=== PATIENT | female | born 1985 | race Caucasian/White ===

== ENCOUNTER 2017-11-04 19:13 | Emergency (ER) | payer OTHER ==
[2017-11-04 19:16] VITALS: BP 121/74; PULSE 87; RESP 16; TEMP 99.1; O2SAT 98
--- NOTE | 2017-11-04 19:36 | PD ---
HPI Chief Complaint: Related Problem Time Seen by Provider: 19:25 Travel History International Travel<30 days: No Contact w/Intl Traveler<30days: No Traveled to known affect area: No History of Present Illness HPI at 32-year-old female whose last menstrual period was September 15. She presents for evaluation of vaginal spotting. Symptoms started this morning. She reports that it is very light and she reports that she went to a crisis center and did have a positive urine test. She does report slight suprapubic cramping discomfort but she says that it is so mild that she believes that it may be secondary to her pants being on too tight. She denies nausea or vomiting, fevers or chills, flank pain, dysuria. Unknown blood type. She does not yet have an sas etl developer that she follows with. No other complaints. PFSH Past Medical History Medical History: Denies Significant Hx Hx Anticoagulant Therapy: No Cardiovascular Problems: No Chemotherapy: No Cerebrovascular Accident: No Diabetes: No Diminished Hearing: No Gastrointestinal Disorders: Yes (Umbilical hernia ) Respiratory: No ?: : 2 Para: 1 Past Surgical History Surgical History: No Previous Surgery Hysterectomy: No Social History Alcohol Use: Yes (Socially) Tobacco Use: Yes (1/2 PPD) Substance Use: No Allergies-Medications (Allergen,Severity, Reaction): Coded Allergies: No Known Allergies (Unverified Adverse Reaction, Unknown, 11/04/17) Reported Meds & Prescriptions Reported Meds & Active Scripts Active Keflex (Cephalexin) 500 Mg Cap 500 Mg PO Q12H 7 Days Review of Systems Except as stated in HPI: all other systems reviewed are Neg Physical Exam Narrative GENERAL: Well-developed well-nourished female in no acute distress SKIN: Warm and dry. HEAD: Atraumatic. Normocephalic. EYES: Pupils equal and round. No scleral icterus. No injection or drainage. ENT: No nasal bleeding or discharge. Mucous membranes pink and moist. NECK: Trachea midline. No JVD. CARDIOVASCULAR: Regular rate and rhythm. No murmur appreciated. RESPIRATORY: No accessory muscle use. Clear to auscultation. Breath sounds equal bilaterally. GASTROINTESTINAL: Abdomen soft, non-tender, nondistended. Hepatic and splenic margins not palpable. MUSCULOSKELETAL: No obvious deformities. No clubbing. No cyanosis. No edema. NEUROLOGICAL: Awake and alert. No obvious cranial nerve deficits. Motor grossly within normal limits. Normal speech. PSYCHIATRIC: Appropriate mood and affect; insight and judgment normal. Data Data Last Documented VS Vital Signs Date Time Temp Pulse Resp B/P (MAP) Pulse Ox O2 Delivery O2 Flow Rate FiO2 11/04/17 19:16 99.1 87 16 121/74 (90) 98 Room Air Orders Orders Beta Hcg (Quant/Titer) (11/04/17 19:34) Complete Rh (11/04/17 19:34) Us Pelvis (Ques Pr/Ect)W Trans (11/04/17 ) Urinalysis - C+S If Indicated (11/04/17 19:34) Ed Urine Pregnancytest Poc (11/04/17 19:34) Labs Laboratory Tests Test 11/04/17 19:50 11/04/17 19:58 Human Chorionic Gonadotropin, Quant 04900 MIU/ML Urine Color LIGHT-YELLOW Urine Turbidity HAZY Urine pH 5.5 Urine Specific [place] 1.013 Urine Protein NEG mg/dL Urine Glucose (UA) NEG mg/dL Urine Ketones TRACE mg/dL Urine Occult Blood SMALL Urine Nitrite NEG Urine Bilirubin NEG Urine Urobilinogen LESS THAN 2.0 MG/DL Urine Leukocyte Esterase NEG Urine RBC 1 /hpf Urine WBC 2 /hpf Urine Squamous Epithelial Cells 26 /hpf Urine Amorphous Sediment RARE Urine Bacteria RARE /hpf Urine Mucus FEW /lpf Microscopic Urinalysis Comment CULT NOT INDICATED MDM Medical Decision Making Medical Screen Exam Complete: Yes Emergency Medical Condition: Yes Medical Record Reviewed: Yes Differential Diagnosis Threatened , incomplete , completed , ectopic Narrative Course 32-year-old female whose last menstrual was September 15 presents with one-day history of mild vaginal spotting and mild suprapubic cramping discomfort. Plan is for a quantitative beta hCG, urinalysis, Rh type, ultrasound. FINDINGS: There is a single viable intrauterine with heart rate 145 beats per minute. Gestational age is 6 weeks one day by crown-rump length. Small amount of free fluid present. Right ovarian cyst measures up to about 4 cm in diameter. Ultrasound confirms intrauterine with heart rate of 145. Urinalysis reveals a symptomatic bacteriuria. Blood type is O+. The patient will be discharged with Keflex for a symptomatic bacteriuria. Diagnosis Primary Impression: Vaginal bleeding affecting early Additional Impression: Asymptomatic bacteriuria Additional Instructions: Medications prescribed. Ultrasound confirms intrauterine with heart rate of 145, estimated gestational age 6 weeks 1 day. Blood type O positive. Follow-up with an sas etl developer. Return for any emergent medical conditions. Med/Other Pt SpecificInfo: Prescription(s) given Scripts Cephalexin (Keflex) 500 Mg Cap 500 MG PO Q12H for Infection for 7 Days, #14 CAP 0 Refills Prov: Isadora Bustillos DO 11/04/17 Disposition: 01 DISCHARGE HOME Condition: Stable Saleem Parsons Nov 04, 2017 19:36
[2017-11-04 20:21] LABS: AMORPHOUS SEDIMENT, URINE RARE; BACTERIA, URINE RARE /hpf; BILIRUBIN, URINE NEG (NEG); BLOOD, URINE SMALL (NEG); GLUCOSE,URINE NEG (NEG); KETONE, URINE TRACE mg/dL (NEG); MUCUS URINE FEW /lpf (OCC); NITRITE,URINE NEG (NEG); PH, URINE 5.5 (5.0-8.5); SQUAMOUS EPITHELIAL CELL URINE 26 /hpf (0-5); URINE COLOR LIGHT-YELLOW (YELLW/STRAW); URINE LEUKOCYTE ESTERASE NEG (NEG)
--- NOTE | 2017-11-04 21:09 | RADRPT ---
EXAM DATE/TIME: 11/04/2017 20:18 [facility] COMPARISON: No previous studies available for comparison. INDICATIONS : Bleeding. LAB(S): Beta-hC MEDICAL HISTORY : Umbilical hernia. SURGICAL HISTORY : None. ENCOUNTER: Initial ACUITY: 1 day PAIN SCORE: 0/10 LOCATION: Bilateral pelvis MEASUREMENTS: UTERUS: 8.5 x 6.4 x 5.8 cm ENDOMETRIAL STRIPE: 15 mm RIGHT OVARY: 5.2 x 5.2 x 4.3 cm LEFT OVARY: 3.1 x 1.9 x 1.7 cm FREE FLUID: Yes CROWN RUMP LENGTH: 0.5 = 6 WKS 1 DAYS FHR: 145 BPM FINDINGS: There is a single viable intrauterine with heart rate 145 beats per minute. Gestation al age is 6 weeks one day by crown-rump length. Small amount of free fluid present. Right ovarian cys t measures up to about 4 cm in diameter. CONCLUSION: 1. Single viable intrauterine with gestational age 6 weeks one day by crown-rump length. 2. 4 cm right ovarian cyst. Dipesh Rico MD on November 04, 2017 at 21:03 Board Certified Radiologist. This report was verified electronically.
[2017-11-04] MEDS ORDERED: CEPH-460 PO (21:37)
== END 2017-11-04 21:53 | disposition home or self-care (01) ==
LOC: NEPD 19:13
DX: O20.9 Hemorrhage in early pregnancy, unspecified (principal); R82.71 Bacteriuria; Z3A.01 Less than 8 weeks gestation of pregnancy
CPT/HCPCS: 76700; 76817; 81001; 84702; 84703; 86901; 99284

== ENCOUNTER 2017-12-10 16:53 | Emergency (ER) | payer MEDICAID, OTHER ==
[2017-12-10] MEDS ORDERED: SODIUM CHLORIDE 0.9% FLUSH 10 ML FLUSH IVF (17:30)
[2017-12-10 18:28] LABS: AUTOMATED NEUTROPHIL # 6.5 TH/MM3 (1.8-7.7); BASOPHIL # 0.1 TH/MM3 (0-0.2); BASOPHIL % 0.8 % (0.0-2.0); EOSINOPHIL # 0.1 TH/MM3 (0-0.4); EOSINOPHIL % 0.8 % (0.0-4.0); HEMATOCRIT 41.6 % (35.0-46.0); HEMO FLAGS DIFF FINAL; HEMOGLOBIN 14.6 GM/DL (11.6-15.3); LYMPH % 30.6 % (9.0-44.0); LYMPHOCYTE # 3.3 TH/MM3 (1.0-4.8); MEAN CELL VOLUME 88.8 FL (80.0-100.0); MEAN PLATELET VOLUME 9.1 FL (7.0-11.0); MONO % 6.5 % (0.0-8.0); MONOCYTE # 0.7 TH/MM3 (0-0.9); NEUT % 61.3 % (16.0-70.0); PLATELET COUNT 254 TH/MM3 (150-450); RED BLOOD COUNT 4.69 MIL/MM3 (4.00-5.30); RED CELL DISTRIBUTION WIDTH 12.3 % (11.6-17.2); WHITE BLOOD COUNT 10.6 TH/MM3 (4.0-11.0)
[2017-12-10 18:50] LABS: AMORPHOUS SEDIMENT, URINE RARE; BILIRUBIN, URINE NEG (NEG); BLOOD, URINE LARGE (NEG); COMMENT (UR) CULT NOT INDICATED; CULTURE IF INDICATED CULT NOT INDICATED; GLUCOSE,URINE NEG (NEG); KETONE, URINE NEG (NEG); MUCUS URINE FEW /lpf (OCC); NITRITE,URINE NEG (NEG); PH, URINE 7.5 (5.0-8.5); SQUAMOUS EPITHELIAL CELL URINE 3 /hpf (0-5); URINE COLOR YELLOW (YELLW/STRAW); URINE LEUKOCYTE ESTERASE NEG (NEG)
[2017-12-10 18:53] LABS: ALBUMIN 4.2 GM/DL (3.4-5.0); ANION GAP 9 MEQ/L (5-15); AST (GOT) 17 U/L (15-37); BICARBONATE 23.1 MEQ/L (21.0-32.0); BLOOD UREA NITROGEN 9 MG/DL (7-18); CALCIUM 9.3 MG/DL (8.5-10.1); CHLORIDE 106 MEQ/L (98-107); CREATININE 0.59 MG/DL (0.50-1.00); GLOMERULAR FILTRATION RATE 118 ML/MIN (>89); GLUCOSE,RANDOM 77 MG/DL (74-106); POTASSIUM 3.7 MEQ/L (3.5-5.1); SODIUM (NA) 138 MEQ/L (136-145)
[2017-12-10 19:14] LABS: ALKALINE PHOSPHATASE 77 U/L (45-117); ALT (GPT) 20 U/L (10-53); BETA HCG QUANT 97744 MIU/ML (0-5); TOTAL BILIRUBIN ADULT 0.4 MG/DL (0.2-1.0); TOTAL PROTEIN 8.3 GM/DL (6.4-8.2)
== END 2017-12-10 20:23 | disposition home or self-care (01) ==
LOC: NEPD 16:53
DX: O20.0 Threatened abortion (principal); Z3A.11 11 weeks gestation of pregnancy; F17.200 Nicotine dependence, unspecified, uncomplicated
CPT/HCPCS: 76700; 80053; 81001; 84702; 85025; 86901; 99284

== ENCOUNTER 2018-03-17 07:38 | Emergency (ER) | payer MEDICAID ==
[~2018-03-17] VITALS: Ht 177.8 cm; Wt 80.0 kg
[~2018-03-17 07:38] MED LIST: WOMETAB5
[2018-03-17 07:42] VITALS: BP 120/58; PULSE 67; RESP 18; TEMP 97.9; O2SAT 100
[2018-03-17] MEDS ORDERED: PREN29TA PO (07:55)
--- NOTE | 2018-03-17 08:14 | PD ---
HPI Chief Complaint: Musculoskeletal Complaint Time Seen by Provider: 08:08 Travel History International Travel<30 days: No Contact w/Intl Traveler<30days: No Traveled to known affect area: No History of Present Illness HPI This is a 33-year-old female who is 6 months , presents today with complaints of tearing sensation under her right breast. Patient states that it woke her from sleep 2-3 days ago. She reports that it feels like it is burning and tearing under her right breast. There is no reported rash. There is no reported known injury. She does report that her breasts have become more full with the . She states she has not had this with previous pregnancies. There is no abdominal pain. There is no vaginal bleeding. There are no other complaints at time of examination. PFSH Past Medical History Hx Anticoagulant Therapy: No Cardiovascular Problems: No Chemotherapy: No Cerebrovascular Accident: No Diabetes: No Diminished Hearing: No Gastrointestinal Disorders: Yes (Umbilical hernia ) Respiratory: No ?: : 3 Para: 2 Past Surgical History Other Surgery: Yes (toes) Social History Alcohol Use: No (Socially) Tobacco Use: Yes (1/2 PPD) Substance Use: No Allergies-Medications (Allergen,Severity, Reaction): Coded Allergies: No Known Allergies (Verified Adverse Reaction, Unknown, 12/16/17) Reported Meds & Prescriptions Reported Meds & Active Scripts Active Reported Plus Iron 29-1 mg ( Vit-Iron Carbonyl) 29 Mg Iron-1 Mg Tab 1 Tab PO DAILY Review of Systems Except as stated in HPI: all other systems reviewed are Neg General / Constitutional: No: Fever, Chills Gastrointestinal: No: Nausea, Vomiting, Abdominal Pain Skin: Positive Other (Tearing and burning sensation under right breast), No Rash, No Lumps, No Lesions Physical Exam Narrative GENERAL: Well-nourished, well-developed patient. SKIN: Focused skin assessment warm/dry. On examination patient's right breast with actually the nurse present, there is no evidence of redness or erythema. There is no palpable fluctuance. There is no rash noted. HEAD: Normocephalic. NEUROLOGICAL: Awake and alert. Cranial nerves II through XII intact. Motor and sensory grossly within normal limits. Five out of 5 muscle strength in all muscle groups. Normal speech. Data Data Last Documented VS Vital Signs Date Time Temp Pulse Resp B/P (MAP) Pulse Ox O2 Delivery O2 Flow Rate FiO2 03/17/18 07:42 97.9 67 18 120/58 (78) 100 MDM Medical Decision Making Medical Screen Exam Complete: Yes Emergency Medical Condition: Yes Differential Diagnosis Pulled muscle versus infection versus zoster. Narrative Course 33-year-old female 6 months , presents today with complaints of pain under her right breast. Patient feels as though it is a tearing sensation just on the inferior portion of her breast. Patient denies any injury. There is no evidence of infection or rash. There is no palpable masses. Given patient's , recommend patient is that she take Tylenol every 6 hours as needed. She is also instructed to use moist heat in the area for 2-3 days. I have informed her that this could possibly be early zoster and if she develops a rash , she should return or follow up with her OB doctor. Diagnosis Primary Impression: Right inferior breast discomfort Additional Impression: 6 months Additional Instructions: Tylenol every 6-8 hours. Moist heat 3-4 times daily. If rash develops return or follow-up with your OB physician. Disposition: 01 DISCHARGE HOME Condition: Stable Pawel Ch MD Mar 17, 2018 08:14
== END 2018-03-17 08:45 | disposition home or self-care (01) ==
LOC: NEPE 07:38
DX: O26.892 Other specified pregnancy related conditions, second trimester (principal); N64.4 Mastodynia; O99.332 Smoking (tobacco) complicating pregnancy, second trimester; F17.200 Nicotine dependence, unspecified, uncomplicated
CPT/HCPCS: 99282

== ENCOUNTER 2018-05-16 17:24 | Emergency (ER) | payer MEDICAID ==
[~2018-05-16 17:24] MED LIST changes: +PREN29TA PO; -WOMETAB5
--- NOTE | 2018-05-16 18:09 | PD ---
HPI Chief Complaint Lower abdominal pain sharp Date Seen: May 16, 2018 Time Seen: 18:02 Travel History International Travel<30 Days: No Contact w/Intl Traveler<30Days: No Known Affected Area: No History of Present Illness HPI Patient is 33-year-old white female A1 at 35 weeks tomorrow [facility] and presents complaining of sharp lower abdominal pain for several days but today much worse. States that is sharp it feels like the baby is putting pressure in the pelvis and that the baby's head wants to just "fall out", she denies bleeding or leakage of fluid. NST is reactive, she is not [place] Weeks Gestation: 35 Para: 1 : 3 History Obstetric History Obstetric History 1 vaginal delivery 1 early loss Social History Alcohol Use: No Tobacco Use: No Substance Abuse: No Allergies-Medications (Allergen,Severity, Reaction): Coded Allergies: No Known Allergies (Verified Adverse Reaction, Unknown, 12/16/17) Home Meds Reported Medications Vit-Iron Carbonyl ( Plus Iron 29-1 mg) 29 Mg Iron-1 Mg Tab, 1 TAB PO DAILY for Nutritional Supplement, #30 TAB 0 Refills 03/17/18 Review of Systems General / Constitutional: No: Fever, Weight Gain, Chills, Other Eyes: No: Diploplia, Blurred Vision, Visual changes, Pain, Photophobia HENT: No: Headaches, Vertigo, Lightheadedness Cardiovascular: No: Irregular Rhythm, Chest Pain or Discomfort, Palpitations, Tachycardia, Syncope, Varicosities, Edema, Cyanosis Respiratory: No: Cough, Short of Breath, Other Gastrointestinal: Abdominal Pain, No: Nausea, Vomiting, Diarrhea Genitourinary: No: Decreased Urinary Output, Oliguria Musculoskeletal: No: Limited ROM, Weakness, Cramping, Edema, Pain Skin: No Rash, No Itching, No Dryness, No Lumps, No Change in Pigmentation, No Change in Nails, No Alopecia, No Lesions Neurologic: No: Weakness, Dizziness, Syncope, Focal Abnormalities, Coordination Problem, Headache, Slurred Speech, Seizures Psychiatric: No: Depression, Suicidal Ideations, Homicidal Ideation Endocrine: No: Heat Intolerance, Cold Intolerance, Polydipsia, Polyuria, Other Physical Exam Narrative GENERAL: Well-nourished, well-developed patient. SKIN: Warm and dry. HEAD: Normocephalic and atraumatic. EYES: No scleral icterus. No injection or drainage. ENT: No nasal drainage noted. Mucous membranes pink. Airway patent. NECK: Supple, trachea midline. No JVD. CARDIOVASCULAR: Regular rate and rhythm without murmurs, gallops, or rubs. RESPIRATORY: Breath sounds equal bilaterally. No accessory muscle use. BREASTS: Bilateral exam showed no masses , no retractions, no nipple discharge. ABDOMEN/GI: Abdomen soft, non-tender, bowel sounds present, no rebound, no guarding Gravid to [-35] weeks size Fundal Height: [-35] GENITOURINARY: External Genitalia: intact and normal in appearance BUS glands: [-] Cervix: [-post] Dilatation: [0-] Effacement: [0-] Station: [-3] there is no excessive pressure noted in the vagina on digital exam Presentation: [vtx-] Membranes: [intact ] Uterine Contractions: [-none] FHT's: Category: [1-] Baseline: [133-] Reactive: R[-] Variability: [mod-] Decels: [-0] EXTREMITIES: No cyanosis or edema. BACK: Nontender without obvious deformity. No CVA tenderness. NEUROLOGICAL: Awake and alert. Motor and sensory grossly within normal limits. Five out of 5 muscle strength in all muscle groups. Normal speech. Data Data Orders Orders Meperidine Inj (Demerol Inj) (05/16/18 18:15) Promethazine Inj (Phenergan Inj) (05/16/18 18:15) Labs Urine dip on OB ED is negative MDM Interpretation(s) Patient is 33-year-old white female at 35 weeks tomorrow [facility] and presents complaining of lower abdominal pain as a sharp and has been worsening through the day been going on for several days. She denies bleeding or rupture membranes. NST is reactive and she is not [place], cervix is closed thick and very posterior. Plan Plan for patient to get a IM injection for pain Demerol/Phenergan, and then bedrest at home for 2 days and a work note to be given. She is to take Tylenol liberally as needed, p.o. hydrate, heating pad or hot bath for symptom relief and follow-up with her clinic Diagnosis Diagnosis: Primary Impression: Lower abdominal pain, unspecified Additional Impression: 35 weeks gestation of Disposition: 01 DISCHARGE HOME Condition: Stable Departure Forms: Work Release Enter return to work date: May 19, 2018 Special Instructions: This patient's having lower abdominal pain related to and overactivity. She needs bedrest for 48 hours Hossein Vazquez II, MD May 16, 2018 18:09
[2018-05-16] MEDS ORDERED: PROMETHAZINE INJ 25 MG/ML VIAL IM ONE (18:15)
[2018-05-16] MEDS ORDERED: MEPERIDINE HCL 50 MG/ML VIAL IM ONE (18:15)
== END 2018-05-16 18:42 | disposition home or self-care (01) ==
LOC: HOBED 17:24
DX: O26.893 Other specified pregnancy related conditions, third trimester (principal); R10.30 Lower abdominal pain, unspecified; Z3A.35 35 weeks gestation of pregnancy
CPT/HCPCS: 96372; 99284; J2175; J2550

== ENCOUNTER 2018-06-29 02:36 | Inpatient (IN) ==
[2018-06-29] MEDS ORDERED: Sod Chloride 0.9% Inj 1,000 ML IV.CONT PRN (03:45)
[2018-06-29] MEDS ORDERED: Sodium Chlor 0.9% Inj 500 ML IV.SIG PRN (03:45)
[2018-06-29] MEDS ORDERED: fentaNYL Citrate Inj 100 MCG/2 ML Ampul IV.PUSH PRN ×2 (03:45)
[2018-06-29] MEDS ORDERED: Citric Acid/Sodium Citrate Liq 30 ML UDC PO SCH (03:45)
[2018-06-29] MEDS ORDERED: Naloxone Inj 0.4 MG/ML Vial IV.PUSH PRN ×2 (03:45→09:55)
[2018-06-29] MEDS ORDERED: Oxytocin 30 Units/500ml Premix 30 UNITS/500 ML BAG IV.SIG ONE (03:45)
[2018-06-29 03:48] LABS: Baso % (Auto) 0.3 % (0.0-2.0); Eos # (Auto) 0.1 th/mm3 (0.0-0.4); Eos % (Auto) 0.7 % (0.0-4.0); Hemoglobin 12.9 gm/dL (11.6-15.3); Lymph # (Auto) 2.7 th/mm3 (1.0-4.8); Lymph % (Auto) 22.3 % (9.0-44.0); Mean Corpuscular HGB Conc 33.9 % (32.0-36.0); Mean Corpuscular Hemoglobin 29.6 pg (27.0-34.0); Mean Corpuscular Volume 87.4 fL (80.0-100.0); Mean Platelet Volume 10.4 fL (7.0-11.0); Mono # (Auto) 0.9 th/mm3 (0.0-0.9); Neut # (Auto) 8.5 th/mm3 (1.8-7.7); Neut % (Auto) 69.7 % (16.0-70.0); Platelet Count 228 th/mm3 (150-450); Red Blood Count 4.34 mil/mm3 (4.00-5.30); Red Cell Distribution Width 12.9 % (11.6-17.2); White Blood Count 12.1 th/mm3 (4.0-11.0)
[2018-06-29 03:53] LABS: Bacteria,Urine Rare /hpf; Bilirubin,Urine Negative (Negative); Clarity,Urine Cloudy (Clear); Color,Urine Yellow (Yellw/Straw); Glucose,Urine (UA) Negative (Negative); Leukocyte Esterase,Urine Small (Negative); Mucus,Urine Few /lpf (Occasional); Nitrite,Urine Negative (Negative); Specific Gravity,Urine 1.023 (1.002-1.035); Squamous Epithelial Cell,Urine 16 /hpf (0-5)
[2018-06-29 03:57] LABS: Amphetamine Urine With Conf Neg (Neg); Benzodiazepine Urine With Conf Neg (Neg)
--- NOTE | 2018-06-29 04:52 | P.HPOB ---
History of Present Illness Primary Care Physician: Jossy Mckeon MD Chief Complaint: early labor at 41 weeks EGA History of Present Illness: 33 yo at 41 weeks EGA was scheduled for induction this am and came in 3 am in labor. No leaking, bleeding. GFM. No symptoms pre eclampsia. PNC with [facility]. Weeks Gestation:: 41 Para: 1 : 3 - Inpatient Certification I certify that the inpatient services were ordered in accordance with Medicare regulations governing the order. This includes certification that hospital inpatient services are reasonable and necessary and in the case of services not specified as inpatient-only under 42 CFR 419.22(n), that they are appropriately provided as inpatient services in accordance to with the 2-midnight benchmark under 43 CFR 412.3(e) Estimated Total Length of Stay (Days): 3 Plans for Post Hospital Care: Home Review of Systems All other systems reviewed negative except as stated in HPI PMFSH - Tobacco History Cigarettes Per Day: 10 - Substance Use History Substance History: No History of Abuse - Travel History History of Recent Travel: No Medications and Allergies Active Medications: Active Medications Citric Acid/Sodium Citrate (Sodium Citrate/Citric Acid Liq) 30 ml PO WASTE MANAGEMENT RECYCLING TECHNICIAN SHERON Stop: 07/03/18 03:44 Fentanyl Citrate (Fentanyl Inj) 50 mcg IV.PUSH Q1H PRN PRN Reason: Pain Scale 3 - 5 Fentanyl Citrate (Fentanyl Inj) 100 mcg IV.PUSH Q1H PRN PRN Reason: PAIN SCALE 6 TO 10 Lactated Ringer's (Lr 1000 Ml Inj) 1,000 mls @ 125 mls/hr IV.CONT .Q8H SHERON Lactated Ringer's (Lr 1000 Ml Inj) 1,000 mls @ 3,000 mls/hr IV.SIG UNSCH PRN PRN Reason: compromise or epidural Sodium Chloride (Ns Inj) 500 mls @ 1,000 mls/hr IV.SIG UNSCH PRN PRN Reason: SEE LABEL COMMENTS Sodium Chloride (Ns Inj) 1,000 mls @ 100 mls/hr IV.CONT .Q10H PRN PRN Reason: SEE LABEL COMMENTS Lidocaine HCl (Xylocaine 1% Inj) 0.1 ml I-DERMAL PRN PRN PRN Reason: For IV start Stop: 07/02/18 03:44 Lidocaine HCl (Xylocaine 1% Inj) 10 ml INFILTRATN PRN PRN PRN Reason: For episiotomy repair Stop: 07/01/18 03:44 Mineral Oil (Muri-Lube Oil) 10 ml TOPICAL PRN PRN PRN Reason: PRN perineal massage Naloxone HCl (Narcan Inj) 0.1 mg IV.PUSH Q2M PRN PRN Reason: for opiate reversal Ondansetron HCl (Zofran Inj) 4 mg IV.PUSH Q6H PRN PRN Reason: NAUSEA OR VOMITING Allergies Allergy/AdvReac Type Severity Reaction Status Date / Time No Known Allergies AdvReac Unknown Uncoded 12/16/17 13:23 Home Medications Medication Instructions Recorded Confirmed Type 95-iron [id number] 1 each PO DAILY 06/19/18 06/19/18 History [ + DHA] Exam Vital signs: Vital Signs 06/29/18 03:26 06/29/18 03:27 06/29/18 03:30 Temperature 97.7 F Pulse Rate 61 Respiratory Rate 20 Blood Pressure 123/82 - Constitutional mild distress - Additional findings Additional findings: Term fundus vertex EFW 8 pounds pelvis proven /-1 per RN Results - Labs CBC & Chem 7: 06/29/18 03:14 Labs: Laboratory Results - last 24 hr 06/29/18 06/29/18 06/29/18 03:14 03:14 03:14 WBC 12.1 H RBC 4.34 Hgb 12.9 Hct 38.0 MCV 87.4 MCH 29.6 MCHC 33.9 RDW 12.9 Plt Count 228 MPV 10.4 Neut % (Auto) 69.7 Lymph % (Auto) 22.3 [place] % (Auto) 7.0 Eos % (Auto) 0.7 Baso % (Auto) 0.3 Neut # (Auto) 8.5 H Lymph # (Auto) 2.7 [place] # (Auto) 0.9 Eos # (Auto) 0.1 Baso # (Auto) 0.0 WBC Differential . Differential Comment Auto diff final Urine Color Urine Clarity Urine pH Ur Specific [place] Urine Protein Urine Glucose (UA) Urine Ketones Urine Occult Blood Urine Nitrate Urine Bilirubin Urine Urobilinogen Ur Leukocyte Esterase Urine RBC Urine WBC Ur Squamous Epith Cells Urine Bacteria Urine Mucus Micro UA Comment Urine Culture Comments Urine Opiates Screen Neg Ur Barbiturates Screen Neg Ur Amphetamine Screen Neg U Benzodiazepines Scrn Neg Urine Cocaine Screen Neg U Cannabinoids Screen Neg Blood Type O Positive Blood Type Recheck Not needed 06/29/18 03:14 WBC RBC Hgb Hct MCV MCH MCHC RDW Plt Count MPV Neut % (Auto) Lymph % (Auto) [place] % (Auto) Eos % (Auto) Baso % (Auto) Neut # (Auto) Lymph # (Auto) [place] # (Auto) Eos # (Auto) Baso # (Auto) WBC Differential Differential Comment Urine Color Yellow Urine Clarity Cloudy H Urine pH 6.0 Ur Specific [place] 1.023 Urine Protein 30 H Urine Glucose (UA) Negative Urine Ketones Negative Urine Occult Blood Moderate H Urine Nitrate Negative Urine Bilirubin Negative Urine Urobilinogen 2.0 H Ur Leukocyte Esterase Small H Urine RBC 3 Urine WBC 10 H Ur Squamous Epith Cells 16 Urine Bacteria Rare H Urine Mucus Few H Micro UA Comment Culture not ind Urine Culture Comments Culture not ind Urine Opiates Screen Ur Barbiturates Screen Ur Amphetamine Screen U Benzodiazepines Scrn Urine Cocaine Screen U Cannabinoids Screen Blood Type Blood Type Recheck Caprini VTE Risk Assessment Caprini VTE Risk Assessment: No/Low Risk (score <= 1) Caprini Risk Assessment Model: Point Value = 1 Point Value = 2 Point Value = 3 Point Value = 5 Age 41-60 Minor surgery BMI > 25 kg/m2 Swollen legs Varicose veins or History of unexplained or recurrent spontaneous Oral contraceptives or hormone replacement Sepsis (< 1 month) Serious lung disease, including pneumonia (< 1 month) Abnormal pulmonary function Acute myocardial infarction Congestive heart failure (< 1 month) History of inflammatory bowel disease Medical patient at bed rest Age 61-74 Arthroscopic surgery Major open surgery (> 45 min) Laparoscopic surgery (> 45 min) Malignancy Confined to bed (> 72 hours) Immobilizing plaster cast Central venous access Age >= 75 History of VTE Family history of VTE Factor V Leiden Prothrombin [id number] Lupus anticoagulant Anticardiolipin antibodies Elevated serum homocysteine Heparin-induced thrombocytopenia Other congenital or acquired thrombophilia Stroke (< 1 month) Elective arthroplasty Hip, pelvis, or leg fracture Acute spinal cord injury (< 1 month) Prophylaxis Regimen: Total Risk Factor Score Risk Level Prophylaxis Regimen 0-1 Low Early ambulation 2 Moderate Order ONE of the following: *Sequential Compression Device (SCD) *Heparin 5000 units SQ BID 3-4 Higher Order ONE of the following medications: *Heparin 5000 units SQ TID *Enoxaparin/Lovenox 40 mg SQ daily (WT < 150 kg, CrCl > 30 mL/min) *Enoxaparin/Lovenox 30 mg SQ daily (WT < 150 kg, CrCl > 10-29 mL/min) *Enoxaparin/Lovenox 30 mg SQ BID (WT < 150 kg, CrCl > 30 mL/min) AND/OR *Sequential Compression Device (SCD) 5 or more Highest Order ONE of the following medications: *Heparin 5000 units SQ TID (Preferred with Epidurals) *Enoxaparin/Lovenox 40 mg SQ daily (WT < 150 kg, CrCl > 30 mL/min) *Enoxaparin/Lovenox 30 mg SQ daily (WT < 150 kg, CrCl > 10-29 mL/min) *Enoxaparin/Lovenox 30 mg SQ BID (WT < 150 kg, CrCl > 30 mL/min) AND *Sequential Compression Device (SCD) Assessment and Plan - Diagnosis (1) 41 weeks gestation of Code(s): Z3A.41 - 41 weeks gestation of Status: Acute (2) Uterine contractions Status: Acute - Plan admit augment and epidural as needed anticipate
[2018-06-29] MEDS ORDERED: fentaNYL 2MCG-Bupiv 0.125% Epi 150 ML EPIDURAL ONE (05:39)
[2018-06-29] MEDS ORDERED: fentaNYL 2MCG-Bupiv 0.125% Epi 150 ML EPIDURAL PRN (06:10)
[2018-06-29] MEDS ORDERED: fentaNYL Citrate Inj 100 MCG/2 ML Ampul EPIDURAL ONE (06:10)
[2018-06-29] MEDS ORDERED: Benzocaine 20% Top Spray 60 ML Can TOPICAL PRN (09:55)
[2018-06-29] MEDS ORDERED: Zolpidem Tartrate 5 MG Tablet PO PRN (09:55)
[2018-06-29] MEDS ORDERED: Witch Hazel 50%/Glyderin 12.5% 40 Pad Jar RECTAL PRN (09:55)
[2018-06-29] MEDS ORDERED: Bisacodyl 10 MG Supp RECTAL PRN (09:55)
[2018-06-29] MEDS ORDERED: Oxytocin 30 Units/500ml Premix 30 UNITS/500 ML BAG IV.CONT SCH (10:00)
--- NOTE | 2018-06-29 10:02 | P.OBDELI ---
Weeks Gestation: 41 Patient Started Active Labor: Yes Anesthesia: Epidural Episiotomy: none Vaginal Delivery: Normal Presentation: Occiput anterior Nuchal Cord: None Delayed Cord Clamping (45 sec): Yes Placenta: Spontaneous delivery Laceration: None Estimated blood loss (mL): 100 : Male Infant Male A Delivery Date: 06/29/18 Weight: 3585 kg score (1 min): 8 score (5 min): 8 Additional Information: Head delivered by maternal effort. No nuchal cord. Anterior shoulder delivered without complication. Placenta delivered without complication. No lacerations.
[2018-06-29] MEDS: Acetaminophen 325 MG Tablet PO PRN ×2 (10:34→14:52)
[2018-06-29] MEDS ORDERED: Diphtheria/Tetanus/Pertussis Vaccine Inj 0.5 ML Syringe IM ONE (16:00)
[2018-06-29] MEDS ORDERED: Measles/Mumps/Rubella Vaccine Inj 0.5 ML Vial SQ ONE (16:00)
[2018-06-29] MEDS ORDERED: Senna/Docusate Sodium 8.6/50 MG Tablet PO SCH (21:00)
--- NOTE | 2018-06-30 08:58 | P.PNOB ---
Subjective Post day: 1 Interval history: Patient is a 33-year-old delivered at 40 weeks and 0 days. Patient is day 1 after . Patient's pain is well-controlled. Patient reports eating and drinking without any nausea or vomiting. Patient reports minimal bleeding. Patient has passed gas but no bowel movements. Patient is walking without lower extremity pain or shortness of breath. Patient reports desire for contraception and formula feeding. Objective Vital Signs/I&O: Vital Signs 06/29/18 09:10 06/29/18 10:00 06/29/18 10:05 Temperature 97.5 F L Pulse Rate 61 66 Respiratory Rate 16 Blood Pressure 106/63 135/107 H 06/29/18 10:15 06/29/18 10:20 06/29/18 10:30 Temperature Pulse Rate 70 66 Respiratory Rate 18 Blood Pressure 130/85 131/87 06/29/18 10:45 06/29/18 11:00 06/29/18 11:40 Temperature 97.9 F Pulse Rate 70 70 66 Respiratory Rate 16 Blood Pressure 138/96 H 129/88 131/86 06/29/18 22:30 Temperature 98.0 F Pulse Rate 72 Respiratory Rate 18 Blood Pressure 130/80 Result Diagrams: 06/29/18 03:14 Objective Remarks: GENERAL: Well-nourished, well-developed patient. CARDIOVASCULAR: Regular rate and rhythm without murmurs, gallops, or rubs. RESPIRATORY: Breath sounds equal bilaterally. No accessory muscle use. ABDOMEN/GI: Abdomen soft, non-tender. Fundus: Firm, non-tender at umbilicus. GENITOURINARY: Light to moderate bleeding. EXTREMITIES: No cyanosis or edema, non-tender, without signs of DVT. Medications and IVs: Active Medications Al Hydroxide/Mg Hydroxide (Milk Of Magnesia Liq) 30 ml PO Q12H PRN PRN Reason: Mild Constipation Benzocaine (Americaine 20% Top [place]) 1 spray TOPICAL Q4H PRN PRN Reason: For Perineum Discomfort Bisacodyl (Dulcolax Supp) 10 mg RECTAL DAILY PRN PRN Reason: SEVERE CONSITIPATION Fentanyl/Bupivacaine/Sodium Chlor (Fentanyl 2 Mcg-Bupiv 0.125% Epi) 150 mls @ 12 mls/hr EPIDURAL PRN PRN PRN Reason: for Labor Pain Ibuprofen (Motrin) 800 mg PO Q8H PRN PRN Reason: For cramping Last Admin: 06/30/18 06:41 Dose: 800 mg Lactulose (Lactulose Liq) 30 ml PO DAILY PRN PRN Reason: SEVERE CONSITIPATION Naloxone HCl (Narcan Inj) 0.1 mg IV.PUSH Q2M PRN PRN Reason: for opiate reversal Nicotine (Habitrol 7 Mg Patch.24 Hr) 1 patch T-DERMAL DAILY SHERON Last Admin: 06/29/18 14:54 Dose: 1 patch Ondansetron HCl (Zofran Odt) 4 mg PO Q6H PRN PRN Reason: NAUSEA OR VOMITING Oxycodone/Acetaminophen (Percocet 5/325 Mg) 1 tab PO Q4H PRN PRN Reason: PAIN 1-10 Last Admin: 06/30/18 06:42 Dose: 1 tab Patch Removal (Remove Old Patch) 1 each T-DERMAL HS SHERON Senna/Docusate Sodium (Veronica-Colace) 1 tab PO BID SHERON Sennosides (Senokot) 17.2 mg PO Q12H PRN PRN Reason: Moderate Constipation Sodium Chloride (Ns Flush) 2 ml IV.FLUSH BID SHERON Sodium Chloride (Ns Flush) 2 ml IV.FLUSH UNSCH PRN PRN Reason: FLUSH AFTER USING IV ACCESS Witch Regina/Glycerin (Tucks Pads) 1 applicatio RECTAL QID PRN PRN Reason: HEMORRHOIDS Zolpidem Tartrate (Ambien) 5 mg PO HS PRN PRN Reason: SLEEP Assessment and Plan - Diagnosis (1) Vaginal delivery Code(s): O80 - Encounter for full-term uncomplicated delivery Status: Acute Plan: Patient is a 33-year-old delivered at 40 weeks and 0 days. Patient is day 1 after . Patient was counseled to do 6 weeks of pelvic rest. Patient was counseled to follow up in 6 weeks. Patient requested follow-up and contraception. --Continue routine care --Motrin and Tylenol when necessary for pain --Encourage OOB --Pelvic rest for 6 weeks will need follow-up appointment at that time. --Contraception: unsure --Anticipate discharge tomorrow
--- NOTE | 2018-07-01 08:31 | P.PNOB ---
Subjective Post day: 2 Interval history: Patient is a 33-year-old delivered at 40 weeks and 0 days. Patient is day 2 after . Patient's pain is well-controlled. Patient reports eating and drinking without any nausea or vomiting. Patient reports minimal bleeding. Patient has passed gas but no bowel movements. Patient is walking without lower extremity pain or shortness of breath. Patient reports desire for contraception and formula feeding. Objective Vital Signs/I&O: Vital Signs 06/30/18 20:00 Temperature 98.2 F Pulse Rate 67 Respiratory Rate 18 Blood Pressure 113/69 Result Diagrams: 06/29/18 03:14 Objective Remarks: GENERAL: Well-nourished, well-developed patient. CARDIOVASCULAR: Regular rate and rhythm without murmurs, gallops, or rubs. RESPIRATORY: Breath sounds equal bilaterally. No accessory muscle use. ABDOMEN/GI: Abdomen soft, non-tender. Fundus: Firm, non-tender at umbilicus. GENITOURINARY: Light to moderate bleeding. EXTREMITIES: No cyanosis or edema, non-tender, without signs of DVT. Medications and IVs: Active Medications Al Hydroxide/Mg Hydroxide (Milk Of Magnesia Liq) 30 ml PO Q12H PRN PRN Reason: Mild Constipation Benzocaine (Americaine 20% Top [place]) 1 spray TOPICAL Q4H PRN PRN Reason: For Perineum Discomfort Bisacodyl (Dulcolax Supp) 10 mg RECTAL DAILY PRN PRN Reason: SEVERE CONSITIPATION Fentanyl/Bupivacaine/Sodium Chlor (Fentanyl 2 Mcg-Bupiv 0.125% Epi) 150 mls @ 12 mls/hr EPIDURAL PRN PRN PRN Reason: for Labor Pain Ibuprofen (Motrin) 800 mg PO Q8H PRN PRN Reason: For cramping Last Admin: 07/01/18 02:24 Dose: 800 mg Lactulose (Lactulose Liq) 30 ml PO DAILY PRN PRN Reason: SEVERE CONSITIPATION Naloxone HCl (Narcan Inj) 0.1 mg IV.PUSH Q2M PRN PRN Reason: for opiate reversal Nicotine (Habitrol 7 Mg Patch.24 Hr) 1 patch T-DERMAL DAILY SHERON Last Admin: 06/30/18 17:32 Dose: 1 patch Ondansetron HCl (Zofran Odt) 4 mg PO Q6H PRN PRN Reason: NAUSEA OR VOMITING Oxycodone/Acetaminophen (Percocet 5/325 Mg) 1 tab PO Q4H PRN PRN Reason: PAIN 1-10 Last Admin: 07/01/18 02:27 Dose: 1 tab Patch Removal (Remove Old Patch) 1 each T-DERMAL HS SHERON Senna/Docusate Sodium (Veronica-Colace) 1 tab PO BID SHERON Last Admin: 06/30/18 20:59 Dose: 1 tab Sennosides (Senokot) 17.2 mg PO Q12H PRN PRN Reason: Moderate Constipation Sodium Chloride (Ns Flush) 2 ml IV.FLUSH BID SHERON Sodium Chloride (Ns Flush) 2 ml IV.FLUSH UNSCH PRN PRN Reason: FLUSH AFTER USING IV ACCESS Witch Regina/Glycerin (Tucks Pads) 1 applicatio RECTAL QID PRN PRN Reason: HEMORRHOIDS Zolpidem Tartrate (Ambien) 5 mg PO HS PRN PRN Reason: SLEEP Assessment and Plan - Diagnosis (1) Vaginal delivery Code(s): O80 - Encounter for full-term uncomplicated delivery Status: Acute Plan: Patient is a 33-year-old delivered at 40 weeks and 0 days. Patient is day 2 after . Patient was counseled to do 6 weeks of pelvic rest. Patient was counseled to follow up in 6 weeks. Patient requested follow-up and contraception. --Continue routine care --Motrin and Tylenol when necessary for pain --Encourage OOB --Pelvic rest for 6 weeks will need follow-up appointment at that time. --Contraception: combined pills --discharge today
[2018-07-01] MEDS ORDERED: Diphtheria/Tetanus/Pertussis Vaccine Inj 0.5 ML Syringe IM ONE (12:30)
== END 2018-07-01 13:22 | disposition home or self-care (01) ==
LOC: H2E 02:36 → H1EA 11:24
PROVIDERS: ADMIT Obstetrics & Gynecology; ATTEND Obstetrics & Gynecology